=== PATIENT | female | born 1960 | race African-American/Black ===

== ENCOUNTER 2019-02-05 08:32 | Emergency (ER) | payer OTHER ==
[2019-02-05] MEDS: ONDANSETRON (ODT) 4 MG TAB ODT (09:04)
[2019-02-05] MEDS: HYDROCODONE/APAP (5/325) TAB PO (09:04)
[2019-02-05] MEDS: CEFAZOLIN 1 GM INJ IM (10:18)
== END 2019-02-05 12:25 | disposition home or self-care (01) ==
LOC: FTE 12:25
DX: S42.402A Unspecified fracture of lower end of left humerus, initial encounter for closed fracture (principal); I10 Essential (primary) hypertension; S00.03XA Contusion of scalp, initial encounter; H11.31 Conjunctival hemorrhage, right eye; Y08.89XA Assault by other specified means, initial encounter; Z21 Asymptomatic human immunodeficiency virus [HIV] infection status
CPT/HCPCS: 12001; 70450; 70486; 73080-LT; 96372; 99285-25